=== PATIENT | male | born 1990 | race Caucasian/White ===

== ENCOUNTER 2018-03-03 22:34 | Emergency (ER) | payer MEDICAID ==
[~2018-03-03 22:34] MED LIST: APIX5TAB3 PO; CEPH500C5 PO; CYCL-1 PO; WARF5TAB PO
== END 2018-03-03 23:24 | disposition left against medical advice (07) ==
LOC: ER 22:35
DX: M25.569 Pain in unspecified knee (principal); Z53.21 Procedure and treatment not carried out due to patient leaving prior to being seen by health care provider

== ENCOUNTER 2019-06-27 11:27 | Emergency (ER) | payer MEDICAID ==
[~2019-06-27] VITALS: Ht 172.7 cm; Wt 81.8 kg
[~2019-06-27 11:27] MED LIST changes: -CEPH500C5 PO; +CLIN-96 PO
[2019-06-27 12:07] VITALS: BP 118/79
[2019-06-27] MEDS ORDERED: TERB30CR22 TP (12:53)
== END 2019-06-27 13:02 | disposition home or self-care (01) ==
LOC: ER 11:28
DX: B35.3 Tinea pedis (principal); F15.90 Other stimulant use, unspecified, uncomplicated; F11.90 Opioid use, unspecified, uncomplicated; Z86.14 Personal history of Methicillin resistant Staphylococcus aureus infection; Z56.0 Unemployment, unspecified; Z79.01 Long term (current) use of anticoagulants; Z79.899 Other long term (current) drug therapy
CPT/HCPCS: 99282

== ENCOUNTER 2019-07-07 16:17 | Emergency (ER) | payer MEDICAID ==
[~2019-07-07] VITALS: Ht 172.7 cm; Wt 88.0 kg
[~2019-07-07 16:17] MED LIST changes: +TERB30CR22 TP
[2019-07-07] MEDS ORDERED: DOXY100C43 PO (17:03)
[2019-07-07 17:19] VITALS: BP 113/72
== END 2019-07-07 17:23 | disposition home or self-care (01) ==
LOC: ER 16:18
DX: L02.415 Cutaneous abscess of right lower limb (principal); F19.10 Other psychoactive substance abuse, uncomplicated; F15.90 Other stimulant use, unspecified, uncomplicated; F11.90 Opioid use, unspecified, uncomplicated; Z86.14 Personal history of Methicillin resistant Staphylococcus aureus infection; Z56.0 Unemployment, unspecified; Z88.2 Allergy status to sulfonamides; Z88.6 Allergy status to analgesic agent; Z79.01 Long term (current) use of anticoagulants; Z79.899 Other long term (current) drug therapy
CPT/HCPCS: 10060; 99283

== ENCOUNTER 2020-03-05 21:47 | Emergency (ER) | payer MEDICAID ==
[~2020-03-05] VITALS: Ht 172.7 cm; Wt 90.9 kg
[~2020-03-05 21:47] MED LIST changes: -CLIN-96 PO; +CLIN-97 PO; -TERB30CR22 TP; +TERB30CR8 TP
[2020-03-05 22:23] VITALS: BP 126/79
[2020-03-05] MEDS ORDERED: DOXY100C77 PO (23:39)
[2020-03-05] MEDS ORDERED: ACET-2119 PO (23:40)
== END 2020-03-05 23:55 | disposition home or self-care (01) ==
LOC: ER 21:48
DX: L02.415 Cutaneous abscess of right lower limb (principal); F15.90 Other stimulant use, unspecified, uncomplicated; F11.90 Opioid use, unspecified, uncomplicated; Z86.14 Personal history of Methicillin resistant Staphylococcus aureus infection; Z88.1 Allergy status to other antibiotic agents; Z88.8 Allergy status to other drugs, medicaments and biological substances; Z79.01 Long term (current) use of anticoagulants
CPT/HCPCS: 99283

== ENCOUNTER 2020-07-29 00:22 | Emergency (ER) | payer MEDICAID ==
[~2020-07-29] VITALS: Ht 172.7 cm; Wt 120.5 kg
[~2020-07-29 00:22] MED LIST changes: -WARF5TAB PO; +WARF5TAB2 PO
[2020-07-29 00:29] VITALS: BP 143/81
[2020-07-29] MEDS ORDERED: CEPH500C5 PO (00:43)
[2020-07-29] MEDS ORDERED: gentamicin 0.1% topical ointment 15gm TP SCH (00:45)
[2020-07-29] MEDS ORDERED: TETanus/Pertussis (Acell)/Diphther VAC/PF (Tdap-Adult) 0.5ml syringe IMVAC ONE (00:45)
== END 2020-07-29 01:11 | disposition home or self-care (01) ==
LOC: ER 00:23
DX: L03.032 Cellulitis of left toe (principal); F17.200 Nicotine dependence, unspecified, uncomplicated; F15.90 Other stimulant use, unspecified, uncomplicated; F11.90 Opioid use, unspecified, uncomplicated; Z86.14 Personal history of Methicillin resistant Staphylococcus aureus infection; Z88.2 Allergy status to sulfonamides; Z88.8 Allergy status to other drugs, medicaments and biological substances; Z79.01 Long term (current) use of anticoagulants; Z79.899 Other long term (current) drug therapy
CPT/HCPCS: 90471; 90715; 99283

== ENCOUNTER 2021-08-19 00:56 | Emergency (ER) | payer MEDICAID ==
[~2021-08-19] VITALS: Ht 170.2 cm; Wt 106.8 kg
[2021-08-19 01:37] VITALS: BP 117/68
[2021-08-19 03:55] LABS: ALBUMIN 3.7 G/DL (3.4-5.0); ANION GAP 9 (8-16); BLOOD UREA NITROGEN 9 MG/DL (7-18); BUN/CREATININE RATIO 13.4 (5.4-32.0); CALCIUM 9.1 MG/DL (8.5-10.1); CHLORIDE 103 MMOL/L (99-107); CREATININE 0.67 MG/DL (0.60-1.10); GLUCOSE 99 MG/DL (70-104); SODIUM 135 MMOL/L (135-145); TOTAL CARBON DIOXIDE 23.1 MMOL/L (24-32); eGFR > 90 ML/MIN
[2021-08-19 04:08] LABS: POTASSIUM 4.4 MMOL/L (3.5-5.1)
[2021-08-19] MEDS ORDERED: CLIN300C54 PO (04:37)
[2021-08-19] MEDS ORDERED: clindamycin 150mg capsule PO ONE (04:40)
== END 2021-08-19 04:55 | disposition home or self-care (01) ==
LOC: ER 00:57
DX: L03.114 Cellulitis of left upper limb (principal); F15.90 Other stimulant use, unspecified, uncomplicated; F11.90 Opioid use, unspecified, uncomplicated; Z88.2 Allergy status to sulfonamides; Z86.718 Personal history of other venous thrombosis and embolism; Z86.14 Personal history of Methicillin resistant Staphylococcus aureus infection; Z88.8 Allergy status to other drugs, medicaments and biological substances; Z79.2 Long term (current) use of antibiotics; Z79.899 Other long term (current) drug therapy
CPT/HCPCS: 36415; 80048; 99283

== ENCOUNTER 2022-01-28 09:08 | Emergency (ER) | payer MEDICAID ==
[~2022-01-28] VITALS: Ht 170.2 cm; Wt 115.9 kg
[2022-01-28 09:15] VITALS: BP 155/103
[2022-01-28] MEDS ORDERED: DIPH28.33 TOP (09:55)
== END 2022-01-28 10:15 | disposition home or self-care (01) ==
LOC: ER 09:09
DX: G56.23 Lesion of ulnar nerve, bilateral upper limbs (principal); F15.90 Other stimulant use, unspecified, uncomplicated; F11.90 Opioid use, unspecified, uncomplicated; F19.90 Other psychoactive substance use, unspecified, uncomplicated; Z86.718 Personal history of other venous thrombosis and embolism; Z86.14 Personal history of Methicillin resistant Staphylococcus aureus infection; Z88.1 Allergy status to other antibiotic agents; Z88.8 Allergy status to other drugs, medicaments and biological substances; Z79.2 Long term (current) use of antibiotics; Z79.899 Other long term (current) drug therapy
CPT/HCPCS: 99282

== ENCOUNTER 2024-11-11 16:08 | Emergency (ER) | payer MEDICAID ==
[~2024-11-11] VITALS: Ht 170.2 cm; Wt 91.9 kg
[~2024-11-11 16:08] MED LIST changes: +DIPH28.33 TOP
[2024-11-11] MEDS ORDERED: AZIT250T3 PO (17:01)
[2024-11-11] MEDS ORDERED: ALBU8HFA INH (17:01)
[2024-11-11 17:28] VITALS: BP 119/74; PULSE 91; RESP 16; TEMP 98.9; O2SAT 98
== END 2024-11-11 17:08 | disposition home or self-care (01) ==
LOC: ER 16:09
DX: J20.9 Acute bronchitis, unspecified (principal); F17.210 Nicotine dependence, cigarettes, uncomplicated; F15.90 Other stimulant use, unspecified, uncomplicated; Z88.2 Allergy status to sulfonamides; Z79.899 Other long term (current) drug therapy
CPT/HCPCS: 71045; 99283

== ENCOUNTER 2025-06-17 23:33 | Emergency (ER) | payer MEDICAID ==
[~2025-06-17] VITALS: Ht 172.7 cm; Wt 70.5 kg
[~2025-06-17 23:33] MED LIST changes: +CLIN-224 PO; -CLIN-97 PO
--- NOTE | 2025-06-17 23:49 | Physician Documentation ---
History of Present Illness Stated Complaint: RASH ALL OVER BODY Time Seen by MD: 23:43 Primary Medical Doctor: Regis Otero [facility] This 34-year-old male that presents to the emergency department for evaluation of bug bites. Patient is concerned that he may have scabies due to worries been sleeping. Reports that he has been sleeping more there lots of bugs he felt like he has been bitten multiple times recently. Patient denies fevers or any other symptoms at this time. Medication Reconciliation Allergies: Coded Allergies: sulfamethoxazole (Verified Allergy, Severe, rash, 07/29/20) trimethoprim (Verified Allergy, Severe, rash, 07/29/20) Scheduled Apixaban (Eliquis), 5 MG PO BID Clindamycin HCL* (Clindamycin HCL*), 1 CAP PO Q6H Diphenhydramine HCl/Zinc Acet (Benadryl Itch Stopping Crm), 1 APPLIC TOP Q8H Terbinafine Hcl (Terbinafine Hcl), 1 GM TP Q12H Warfarin Sodium (Coumadin), 1 TAB PO DAILY Scheduled PRN Cyclobenzaprine* (Cyclobenzaprine*), 1 TABLET PO Q8H PRN for muscle spasms Past Medical History Past Medical History: No Pertinent History, Deep Vein Thrombosis, MRSA Abscess Past Surgical History: no surgical history Alcohol Use: Rarely Drug Use: methamphetamine, heroin, other Lives with: Spouse Lives In: Home Occupation: employed Review of Systems ROS As stated above in the HPI, otherwise all systems are reviewed and negative. Physical Exam Physical Exam VITALS: Reviewed and as above. GENERAL: Alert, no apparent distress. HEENT: Normocephalic, atraumatic, PERRL, EOMI, dry mucosa, no erythema RESPIRATORY: Lungs clear, normal breath sounds, no respiratory distress. CHEST: No accessory muscle use, no retractions CV: Regular rate, rhythm, no edema, no murmur, No: JVD GI: Soft, non-tender, bowels sounds present, no rebound, guarding, or rigidity BACK: No CVA tenderness, or swelling MUSCULOSKELETAL No deformities, no edema SKIN: Warm and dry, no lesion sporadically noted throughout lower extremities upper extremities abdomen, consistent with bug bites. NEURO: Oriented x4, No motor or sensory deficit PSYCH: Normal mood and affect, no agitation Medical Decision Making Findings This patient who presents with rash for a day consistent with bug bites. Bites not consistent with scabies. History and exam findings not consistent with dangerous etiologies of rash such as SJS/TEN, or secondary dangerous causes such as petechial rashes from thrombocytopenia or rickettsial infections. Rash does not appear urticarial with no signs of anaphylaxis either. Plan at this time is to treat symptomatically with Benadryl and topical creams. Patient will follow up with primary care provider. Patient provided provided with strict return precautions. Departure Disposition: HOME / SELF CARE / HOMELESS Impression: Primary Impression: Insect bites Additional Impression: Pruritus Condition: Stable Discharge Instructions: Insect Bite, Adult, [id number], Rash, Adult Additional Instructions: This patient who presents with rash for a day consistent with bug bites. Bites not consistent with scabies. History and exam findings not consistent with dangerous etiologies of rash such as SJS/TEN, or secondary dangerous causes such as petechial rashes from thrombocytopenia or rickettsial infections. Rash does not appear urticarial with no signs of anaphylaxis either. Plan at this time is to treat symptomatically with Benadryl and topical creams. Patient will follow up with primary care provider. Patient provided provided with strict return precautions. Referrals: NO PRIMARY CARE PROVIDER (PCP) Prescriptions Hydrocortisone (hydrocortisone 1% cream) 1 % Cream..g. 1 APPLIC TOP Q12H for 7 Days, #30 GM 0 Refills apply to affected area(s) Prov: GUERO BACA 06/17/25 Diphenhydramine Hcl (Benadryl) 25 Mg Capsule 1 CAP PO HS for 30 Days, #30 CAP 0 Refills Prov: GUERO BACA 06/17/25 Education Educated: Patient Educated regarding: diagnosis, treatment, need for follow up Signature Scribe Signature: A Attestation: Scribed for Guero Baca by JATINDER Fernandez . 06/17/25 23:57 GUERO BACA Jun 17, 2025 23:49
[2025-06-17] MEDS ORDERED: HYDR28CR14 TOP (23:54)
[2025-06-17] MEDS ORDERED: DIPH25CA83 PO (23:54)
[2025-06-18] MEDS: hydrocortisone 1% cream 28gm TP SCH (00:19)
[2025-06-18] MEDS: hydrocortisone 1% cream 28gm TP STA (00:23)
[2025-06-18 00:50] VITALS: BP 120/75; PULSE 99; RESP 16; TEMP 98.9; O2SAT 98
== END 2025-06-18 00:52 | disposition home or self-care (01) ==
LOC: ER 23:34
DX: L29.9 Pruritus, unspecified (principal); Z88.1 Allergy status to other antibiotic agents; Z88.2 Allergy status to sulfonamides
CPT/HCPCS: 99283; Q0163